=== PATIENT | female | born 1995 | race African-American/Black ===

== ENCOUNTER 2019-08-20 11:33 | Emergency (ER) | payer MEDICAID ==
[~2019-08-20] VITALS: Ht 177.8 cm; Wt 92.0 kg
[2019-08-20] MEDS ORDERED: SODIUM CHLORIDE 0.9% 1,000 ML IV ONE (12:04)
[2019-08-20] MEDS ORDERED: LORAZEPAM 2MG/ML CPJ IV ONE (12:15)
[2019-08-20 14:29] LABS: BASOPHILS % 0.4 % (0.0-2.0); EOSINOPHILS % 0.6 % (0.0-5.0); HEMATOCRIT. 36.4 % (36.0-48.0); HEMOGLOBIN. 12.1 g/dL (12.0-16.0); LYMPHOCYTES % 24.1 % (20.0-50.0); MEAN CORPUSCULAR HEMOGLOBIN 28.4 pg (28.0-32.0); MEAN CORPUSCULAR VOLUME 85.2 fL (81.0-99.0); MEAN PLATELET VOLUME 7.4 fl (7.4-10.4); MONOCYTES % 6.5 % (2.0-8.0); NEUTROPHILS % 68.4 % (40.0-76.0); PLATELET 328 x1000/uL (130-400); RED BLOOD CELL COUNT 4.28 mill/uL (4.2-5.4); RED CELL DISTRIBUTION WIDTH 13.6 % (11.6-14.6)
[2019-08-20 14:31] LABS: CHLORIDE 110 mEq/L (98-107)
[2019-08-20 14:34] LABS: ETHANOL BLOOD < 10 mg/dL
[2019-08-20 14:48] LABS: HCG SCREEN NEGATIVE
[2019-08-20 15:51] LABS: CLARITY URINE CLEAR (CLEAR); COLOR URINE YELLOW (YELLOW); KETONES URINE NEGATIVE (NEGATIVE); LEUKOCYTE ESTERASE URINE NEGATIVE (NEGATIVE); NITRITE URINE NEGATIVE (NEGATIVE); OCCULT BLOOD URINE TRACE (NEGATIVE); PH URINE 5.5 (4.5-8.0); PROTEIN URINE NEGATIVE (NEGATIVE); SPECIFIC GRAVITY URINE 1.019 (1.005-1.030); UROBILINOGEN URINE 0.2 E.U./dL (0.2-1.0)
[2019-08-20 16:05] VITALS: BP 127/78
[2019-08-20 16:37] LABS: *AMPHETAMINES SCREEN URINE NEGATIVE (NEGATIVE); *BARBITURATES SCREEN URINE NEGATIVE (NEGATIVE)
[2019-08-20 16:38] LABS: *BENZODIAZEPINES SCREEN URINE NEGATIVE (NEGATIVE); *COCAINE SCREEN URINE NEGATIVE (NEGATIVE); METHADONE URINE SCREEN NEGATIVE (NEGATIVE); OPIATES URINE SCREEN NEGATIVE (NEGATIVE)
[2019-08-20 16:39] LABS: PHENCYCLIDINE URINE SCREEN NEGATIVE (NEGATIVE)
[2019-08-20 16:45] LABS: CANNABINOID URINE SCREEN PRESUMTIVE POSITIVE (NEGATIVE)
== END 2019-08-20 16:40 | disposition home or self-care (01) ==
LOC: ER 11:33
DX: F41.1 Generalized anxiety disorder (principal); F43.0 Acute stress reaction; R55 Syncope and collapse; Z63.4 Disappearance and death of family member; R03.0 Elevated blood-pressure reading, without diagnosis of hypertension; R00.1 Bradycardia, unspecified
CPT/HCPCS: 36415; 70450; 71045; 80053; 80305; 80307; 80320; 80329; 81003; 82962; 83880; 84484; 84703; 85025; 93005; 96361; 96374; 99285; J2060; J7030; G0480

== ENCOUNTER 2024-04-15 10:14 | Emergency (ER) | payer MEDICAID ==
[~2024-04-15] VITALS: Ht 175.3 cm; Wt 90.0 kg
[2024-04-15 10:15] VITALS: O2SAT 98
[2024-04-15 11:37] LABS: HEMATOCRIT. 37.9 % (36.0-48.0); HEMOGLOBIN. 12.3 g/dL (12.0-16.0); MEAN CORPUSCULAR HEMOGLOBIN 28.1 pg (28.0-32.0); MEAN CORPUSCULAR HGB CONC 32.4 g/dL (31.0-37.0); MEAN CORPUSCULAR VOLUME 86.6 fL (81.0-99.0); MEAN PLATELET VOLUME 7.6 fl (7.4-10.4); PLATELET 328 x1000/uL (130-400); RED BLOOD CELL COUNT 4.38 mill/uL (4.2-5.4); RED CELL DISTRIBUTION WIDTH 14.2 % (11.6-14.6); WHITE BLOOD COUNT 5.4 x1000/uL (4.5-11.0)
[2024-04-15 11:41] LABS: CHLORIDE 107 mEq/L (98-107); POTASSIUM 4.1 mEq/L (3.5-5.1); SODIUM 137 mEq/L (136-145)
[2024-04-15 11:42] LABS: CALCIUM 9.2 mg/dL (8.7-10.4); CARBON DIOXIDE 22 mEq/L (21-32)
[2024-04-15 11:45] LABS: DIFFERENTIAL COMMENT 1; PROTHROMBIN TIME 11.2 sec (9.6-11.0)
[2024-04-15 11:47] LABS: CREATININE 0.9 mg/dL (0.6-1.0); GLUCOSE 128 mg/dL (70-105); UREA NITROGEN BLOOD 7 mg/dL (9-23)
[2024-04-15 11:53] LABS: HCG SCREEN NEGATIVE
[2024-04-15 12:10] LABS: PLATELET ESTIMATE NORMAL
[2024-04-15 12:38] LABS: TROPONIN I HIGH SENSITIVITY < 4 ng/L (3.0-34)
[2024-04-15 12:39] LABS: ETHANOL BLOOD < 10 mg/dL (<10)
[2024-04-15 13:00] LABS: CLARITY URINE CLEAR (CLEAR); COLOR URINE YELLOW (YELLOW); GLUCOSE URINE NEGATIVE (NEGATIVE); KETONES URINE TRACE (NEGATIVE); LEUKOCYTE ESTERASE URINE NEGATIVE (NEGATIVE); NITRITE URINE NEGATIVE (NEGATIVE); OCCULT BLOOD URINE NEGATIVE (NEGATIVE); PH URINE 7.5 (4.5-8.0); PROTEIN URINE NEGATIVE (NEGATIVE); SPECIFIC GRAVITY URINE 1.058 (1.005-1.030); UROBILINOGEN URINE 0.2 E.U./dL (0.2-1.0)
[2024-04-15 13:15] LABS: *AMPHETAMINES SCREEN URINE NEGATIVE (NEGATIVE); *BARBITURATES SCREEN URINE NEGATIVE (NEGATIVE); *BENZODIAZEPINES SCREEN URINE PRESUMPTIVE POSITIVE (NEGATIVE); *COCAINE SCREEN URINE NEGATIVE (NEGATIVE); METHADONE URINE SCREEN NEGATIVE (NEGATIVE); OPIATES URINE SCREEN NEGATIVE (NEGATIVE)
[2024-04-15 13:16] LABS: CANNABINOID URINE SCREEN PRESUMPTIVE POSITIVE (NEGATIVE); ECSTASY MDMA SCREEN URINE NEGATIVE (NEGATIVE); PHENCYCLIDINE URINE SCREEN NEGATIVE (NEGATIVE)
[2024-04-15] MEDS ORDERED: HYDROCODONE/ACETAMINOPHEN 5/325MG TABLET PO PRN (14:30)
[2024-04-15] MEDS ORDERED: LORAZEPAM 2MG/ML INJ IV PRN (14:30)
[2024-04-15] MEDS ORDERED: ACETAMINOPHEN 325MG TABLET PO PRN (14:30)
[2024-04-15] MEDS ORDERED: IPRATROPIUM/ALBUTEROL 0.5-3(2.5)MG/3ML NEB NEB PRN (14:30)
[2024-04-15] MEDS ORDERED: ONDANSETRON HCL 4MG/2ML INJ IV PRN (14:30)
[2024-04-15] MEDS ORDERED: CLONIDINE 0.1MG TABLET PO PRN (14:30)
[2024-04-15] MEDS ORDERED: LORAZEPAM 0.5MG TABLET PO PRN (14:45)
[2024-04-15] MEDS: SODIUM CHLORIDE 0.9% 1,000 ML IV SCH (15:00)
[2024-04-15] MEDS: IOHEXOL-350 100 ML BOTTLE ONE (15:49)
[2024-04-15] MEDS: ENOXAPARIN 40MG/0.4ML SYR SUBCUT SCH (15:49)
[2024-04-15 16:02] VITALS: BP 118/69; PULSE 62; RESP 17; TEMP 36.89184; O2SAT 95
[2024-04-15] MEDS ORDERED: ZOLPIDEM TARTRATE 5MG TABLET PO PRN (21:00)
== END 2024-04-15 16:03 | disposition short-term general hospital (02) ==
LOC: ER 10:21
DX: G93.40 Encephalopathy, unspecified (principal); F41.9 Anxiety disorder, unspecified; J45.909 Unspecified asthma, uncomplicated; I49.9 Cardiac arrhythmia, unspecified
CPT/HCPCS: 80305; 80048; 81003; 80320; 84703; 85025; 85610; 84484; 36415; 71045; 70496; 70498; 70450; 70551; 93005; 96372; 99285; Q9967; J1650; A4663; A4606; G0480